=== PATIENT | female | born 1935 | race Native Hawaiian/Other Pacific Islander ===

== ENCOUNTER 2016-08-16 10:16 | Outpatient (CLI) | payer OTHER ==
[~2016-08-16 10:16] MED LIST: ASA LO-DOSE81 MG OR; ESTR0.6256 VA; FLINTSTONE1 OR; METF500T; METF500T PO; MICARDIS40 MG OR; NIASPAN1000 ER OR; SIMV40TA57; SIMV40TA57 PO; VIMOVO1 TA1 OR
== END 2016-08-16 11:16 | disposition home or self-care (01) ==
LOC: MAMMO 10:16
DX: Z12.31 Encounter for screening mammogram for malignant neoplasm of breast (principal)
CPT/HCPCS: G0202-TC

== ENCOUNTER 2016-11-06 15:06 | Outpatient (CLI) | payer OTHER ==
[2016-11-06 15:22] LABS: POTASSIUM 4.8 mmol/L (3.6-5.2)
[2016-11-06 15:24] LABS: PLATELET COUNT 218 K/uL (152-353)
== END 2016-11-06 19:31 | disposition home or self-care (01) ==
LOC: LAB 15:06
PROVIDERS: Nurse Practitioner Family
DX: E78.2 Mixed hyperlipidemia (principal); I12.9 Hypertensive chronic kidney disease with stage 1 through stage 4 chronic kidney disease, or unspecified chronic kidney disease; N18.3 Chronic kidney disease, stage 3 (moderate); D63.1 Anemia in chronic kidney disease; R80.8 Other proteinuria; I25.10 Atherosclerotic heart disease of native coronary artery without angina pectoris; E11.9 Type 2 diabetes mellitus without complications
CPT/HCPCS: 80053; 80061; 82306; 85027

== ENCOUNTER 2016-11-07 12:25 | Outpatient (CLI) | payer OTHER | END 2016-11-07 19:16 | disposition home or self-care (01) | LOC: LAB 12:25 | DX: E78.2 Mixed hyperlipidemia (principal); I12.9 Hypertensive chronic kidney disease with stage 1 through stage 4 chronic kidney disease, or unspecified chronic kidney disease; N18.3 Chronic kidney disease, stage 3 (moderate); D63.1 Anemia in chronic kidney disease; R80.8 Other proteinuria; I25.10 Atherosclerotic heart disease of native coronary artery without angina pectoris; E11.9 Type 2 diabetes mellitus without complications | CPT/HCPCS: 83036; 84436; 84443 ==

== ENCOUNTER 2017-02-06 13:45 | Outpatient (CLI) | payer OTHER ==
[2017-02-06 15:26] LABS: PLATELET COUNT 229 K/uL (152-353)
[2017-02-06 15:47] LABS: POTASSIUM 5.1 mmol/L (3.6-5.2)
== END 2017-02-06 14:50 | disposition home or self-care (01) ==
LOC: LAB 13:45
PROVIDERS: Nurse Practitioner Family
DX: Z00.00 Encounter for general adult medical examination without abnormal findings (principal); E11.9 Type 2 diabetes mellitus without complications; E78.2 Mixed hyperlipidemia; I12.9 Hypertensive chronic kidney disease with stage 1 through stage 4 chronic kidney disease, or unspecified chronic kidney disease; I25.10 Atherosclerotic heart disease of native coronary artery without angina pectoris; N25.81 Secondary hyperparathyroidism of renal origin; D63.1 Anemia in chronic kidney disease; N18.3 Chronic kidney disease, stage 3 (moderate)
CPT/HCPCS: 80053; 80061; 82306; 82607; 83036; 84436; 84443; 85027

== ENCOUNTER 2017-06-06 14:51 | Outpatient (CLI) | payer OTHER ==
[2017-06-06 15:26] LABS: PLATELET COUNT 237 K/uL (152-353)
[2017-06-06 16:02] LABS: POTASSIUM 4.6 mmol/L (3.6-5.2)
== END 2017-06-06 15:55 | disposition home or self-care (01) ==
LOC: LAB 14:51
PROVIDERS: Nurse Practitioner Family
DX: I12.9 Hypertensive chronic kidney disease with stage 1 through stage 4 chronic kidney disease, or unspecified chronic kidney disease (principal); N18.3 Chronic kidney disease, stage 3 (moderate); D63.1 Anemia in chronic kidney disease; N25.81 Secondary hyperparathyroidism of renal origin; E11.9 Type 2 diabetes mellitus without complications; E78.4 Other hyperlipidemia; I25.10 Atherosclerotic heart disease of native coronary artery without angina pectoris
CPT/HCPCS: 80053; 80061; 82306; 82728; 83036; 83540; 83970; 84100; 84436; 84443; 85027

== ENCOUNTER 2017-11-20 13:52 | Outpatient (CLI) | payer OTHER ==
[2017-11-20 14:34] LABS: PLATELET COUNT 229 K/uL (152-353)
== END 2017-11-20 21:58 | disposition home or self-care (01) ==
LOC: LAB 13:52
PROVIDERS: Nurse Practitioner Family
DX: E11.9 Type 2 diabetes mellitus without complications (principal); E78.2 Mixed hyperlipidemia; I25.10 Atherosclerotic heart disease of native coronary artery without angina pectoris; Z79.899 Other long term (current) drug therapy; Z51.81 Encounter for therapeutic drug level monitoring
CPT/HCPCS: 80053; 80061; 83036; 84436; 84443; 85027

== ENCOUNTER 2018-02-04 06:40 | Day surgery (SDC) | payer OTHER | END 2018-02-04 08:12 | disposition home or self-care (01) | LOC: OR 06:40 | PROC: 08RK3JZ Replacement of Left Lens with Synthetic Substitute, Percutaneous Approach (ICD-10-PCS; principal; 2018-02-04) | DX: H25.812 Combined forms of age-related cataract, left eye (principal) | CPT/HCPCS: 66984; J0171; V2632 ==

== ENCOUNTER 2018-03-08 13:54 | Outpatient (CLI) | payer OTHER ==
[2018-03-08 14:32] LABS: PLATELET COUNT 216 K/uL (152-353)
[2018-03-08 14:33] LABS: POTASSIUM 4.8 mmol/L (3.6-5.2)
== END 2018-03-08 19:49 | disposition home or self-care (01) ==
LOC: LAB 13:54
PROVIDERS: Nurse Practitioner Family
DX: E11.9 Type 2 diabetes mellitus without complications (principal); E78.2 Mixed hyperlipidemia; I25.10 Atherosclerotic heart disease of native coronary artery without angina pectoris; Z79.899 Other long term (current) drug therapy; Z51.81 Encounter for therapeutic drug level monitoring
CPT/HCPCS: 80053; 80061; 83036; 84436; 84443; 85027

== ENCOUNTER 2019-04-30 13:19 | Outpatient (CLI) | payer OTHER ==
[2019-04-30 14:13] LABS: PLATELET COUNT 215 K/uL (152-353)
[2019-04-30 14:25] LABS: POTASSIUM 4.7 mmol/L (3.6-5.2)
== END 2019-04-30 20:13 | disposition home or self-care (01) ==
LOC: LAB 13:19
PROVIDERS: Nurse Practitioner Family
DX: Z00.00 Encounter for general adult medical examination without abnormal findings (principal); E11.9 Type 2 diabetes mellitus without complications; E78.2 Mixed hyperlipidemia; M19.90 Unspecified osteoarthritis, unspecified site; I25.10 Atherosclerotic heart disease of native coronary artery without angina pectoris; Z79.899 Other long term (current) drug therapy
CPT/HCPCS: 80053; 80061; 83036; 84439; 84443; 85027

== ENCOUNTER 2019-08-08 12:45 | Outpatient (CLI) | payer OTHER ==
[2019-08-08 13:37] LABS: PLATELET COUNT 255 K/uL (152-353)
[2019-08-08 13:45] LABS: POTASSIUM 4.6 mmol/L (3.6-5.2)
== END 2019-08-08 22:41 | disposition home or self-care (01) ==
LOC: LAB 12:45
PROVIDERS: Nurse Practitioner Family
DX: Z00.00 Encounter for general adult medical examination without abnormal findings (principal); E11.9 Type 2 diabetes mellitus without complications; E78.2 Mixed hyperlipidemia; Z79.899 Other long term (current) drug therapy; D63.1 Anemia in chronic kidney disease; N18.9 Chronic kidney disease, unspecified
CPT/HCPCS: 80053; 80061; 83036; 84439; 84443; 85027

== ENCOUNTER 2020-06-07 09:01 | Outpatient (CLI) | payer OTHER | END 2020-06-07 20:26 | disposition home or self-care (01) | LOC: RESP 09:01 | DX: R00.0 Tachycardia, unspecified (principal); R00.2 Palpitations; I10 Essential (primary) hypertension | CPT/HCPCS: 93225 ==

== ENCOUNTER 2021-12-19 16:15 | Outpatient (CLI) | payer OTHER ==
[2021-12-19 17:13] LABS: POTASSIUM 4.9 mmol/L (3.6-5.2)
[2021-12-19 17:38] LABS: PLATELET COUNT 187 K/uL (152-353)
== END 2021-12-19 19:10 | disposition home or self-care (01) ==
LOC: LAB 16:15
PROVIDERS: ATTEND Nurse Practitioner Family
DX: E78.2 Mixed hyperlipidemia (principal); E11.9 Type 2 diabetes mellitus without complications; N18.9 Chronic kidney disease, unspecified; M19.90 Unspecified osteoarthritis, unspecified site; Z79.899 Other long term (current) drug therapy; E55.9 Vitamin D deficiency, unspecified; G47.00 Insomnia, unspecified; M54.30 Sciatica, unspecified side; R68.89 Other general symptoms and signs; R53.83 Other fatigue; R53.81 Other malaise; I12.9 Hypertensive chronic kidney disease with stage 1 through stage 4 chronic kidney disease, or unspecified chronic kidney disease
CPT/HCPCS: 80053; 80061; 82306; 82607; 83036; 84439; 84443; 85027

== ENCOUNTER 2022-12-13 11:16 | Emergency (ER) | payer OTHER ==
[~2022-12-13] VITALS: Ht 167.6 cm; Wt 63.5 kg
[2022-12-13 11:24] VITALS: TEMP 98.9
[2022-12-13 12:02] LABS: PLATELET COUNT 180 K/uL (152-353)
[2022-12-13 12:26] LABS: POTASSIUM 4.6 mmol/L (3.6-5.2)
[2022-12-13 16:30] VITALS: BP 172/76
== END 2022-12-13 17:35 | disposition short-term general hospital (02) ==
LOC: ED 11:16
PROVIDERS: Emergency Medicine Emergency Medical Services
DX: R31.0 Gross hematuria (principal)
CPT/HCPCS: 36415; 80053; 81000; 85027; 85610; 87040; 87077; 87086; 87088; 87186; 96361; 96365; 99284; J0696